=== PATIENT | male | born 1945 | race Caucasian/White ===

== ENCOUNTER 2017-01-07 08:43 | Day surgery (SDC) | payer MEDICARE, OTHER ==
[~2017-01-07] VITALS: Ht 177.8 cm; Wt 87.8 kg
[~2017-01-07 08:43] MED LIST: ASPIRIN 81M81 MG/TA2 PO; PRINIVIL20 MG PO; TOPROL XL 25MG25 MG PO; ZOCOR5 MG PO
[2017-01-07] MEDS ORDERED: PRINZIDE 12.5 M1 TAB PO (09:09)
[2017-01-07 11:43] VITALS: BP 109/75; PULSE 54; TEMP 97.7
[2017-01-07] MEDS ORDERED: NORCO 325 MG-7.1 TAB PO (11:46)
[2017-01-07 12:00] VITALS: BP 116/66; PULSE 45
[2017-01-07 12:15] VITALS: BP 132/77; PULSE 47
[2017-01-07 12:30] VITALS: BP 111/92; PULSE 49
[2017-01-07 13:00] VITALS: BP 136/75; PULSE 42
== END 2017-01-07 13:35 | disposition home or self-care (01) ==
LOC: SDCO 08:43
DX: K40.90 Unilateral inguinal hernia, without obstruction or gangrene, not specified as recurrent (principal); I10 Essential (primary) hypertension; E78.5 Hyperlipidemia, unspecified; Z85.828 Personal history of other malignant neoplasm of skin; Z96.641 Presence of right artificial hip joint; M19.90 Unspecified osteoarthritis, unspecified site
CPT/HCPCS: C1781; J0690; J2704; J3010; J7120